=== PATIENT | female | born 1990 ===

== ENCOUNTER 2019-12-04 11:45 | Inpatient (IN) | payer OTHER ==
[~2019-12-04] VITALS: Ht 157.5 cm; Wt 69.9 kg
[2019-12-20] MEDS ORDERED: LEVO-T75 MCG PO (07:45)
[2019-12-20] MEDS ORDERED: PRENATAL MULTI1 EAC3 PO (07:46)
== END 2019-12-22 16:09 | disposition home or self-care (01) | DRG 807 ==
LOC: OB/GYN 12-16 11:45 → LDR 12-20 06:28 → OB/GYN 12-20 15:46 → LDR 01-02 11:45
PROVIDERS: ADMIT Obstetrics & Gynecology
PROC: 10E0XZZ Delivery of Products of Conception, External Approach (ICD-10-PCS; principal; 2019-12-20)
PROC: 4A1HXFZ Monitoring of Products of Conception, Cardiac Rhythm, External Approach (ICD-10-PCS; 2019-12-20)
PROC: 0HQ9XZZ Repair Perineum Skin, External Approach (ICD-10-PCS; 2019-12-20)
PROC: 3E033VJ Introduction of Other Hormone into Peripheral Vein, Percutaneous Approach (ICD-10-PCS; 2019-12-20)
DX: O70.0 First degree perineal laceration during delivery (principal); Z37.0 Single live birth; Z3A.39 39 weeks gestation of pregnancy

== ENCOUNTER 2019-12-18 09:28 | Outpatient (CLI) | payer OTHER | END 2019-12-18 10:46 | disposition home or self-care (01) | LOC: NST 09:28 | DX: Z34.83 Encounter for supervision of other normal pregnancy, third trimester (principal) ==

== ENCOUNTER 2021-08-27 06:35 | Inpatient (IN) | payer OTHER ==
[~2021-08-27] VITALS: Ht 157.5 cm; Wt 71.2 kg
[~2021-08-27 06:35] MED LIST: LEVO-T75 MCG PO; PRENATAL MULTI1 EAC3 PO
== END 2021-08-29 12:42 | disposition home or self-care (01) | DRG 807 ==
LOC: LDR 06:35 → OB/GYN 06:35 → LDR 10:08 → SURH 13:45 → OB/GYN 16:00
PROVIDERS: ADMIT Obstetrics & Gynecology; ATTEND Obstetrics & Gynecology
PROC: 10E0XZZ Delivery of Products of Conception, External Approach (ICD-10-PCS; principal; 2021-08-27)
PROC: 4A1HXFZ Monitoring of Products of Conception, Cardiac Rhythm, External Approach (ICD-10-PCS; 2021-08-27)
DX: O80 Encounter for full-term uncomplicated delivery (principal); Z37.0 Single live birth; Z3A.39 39 weeks gestation of pregnancy